=== PATIENT | female | born 1995 | race Two or more races ===

== ENCOUNTER → 2023-10-31 14:33 | Outpatient (CLI) | payer OTHER | END | disposition home or self-care (01) | LOC: PRENATAL 14:33 | PROVIDERS: ATTEND Obstetrics & Gynecology Maternal & Fetal Medicine | DX: O36.80X0 Pregnancy with inconclusive fetal viability, not applicable or unspecified (principal); Z36.82 Encounter for antenatal screening for nuchal translucency; Z3A.13 13 weeks gestation of pregnancy ==

== ENCOUNTER 2023-12-24 16:02 | Outpatient (CLI) | payer OTHER | END 2023-12-24 16:03 | disposition home or self-care (01) | LOC: PRENATAL 16:02 | PROVIDERS: ATTEND Obstetrics & Gynecology Maternal & Fetal Medicine | DX: O44.00 Complete placenta previa NOS or without hemorrhage, unspecified trimester (principal); Z14.8 Genetic carrier of other disease; Z3A.21 21 weeks gestation of pregnancy ==